=== PATIENT | male | born 1965 | race Caucasian/White ===

== ENCOUNTER 2018-01-15 11:35 | Emergency (ER) | payer MEDICARE, MEDICAID ==
[2018-01-15] MEDS: CEFTRIAXONE 1 GM INJ IM (12:28)
[2018-01-15] MEDS: LIDOCAINE 1% (MDV) 20 ML INJ SC (12:29)
== END 2018-01-15 12:55 | disposition home or self-care (01) ==
LOC: FTE 11:35
DX: H92.03 Otalgia, bilateral (principal); I10 Essential (primary) hypertension
CPT/HCPCS: 96372; 99284-25

== ENCOUNTER 2018-02-03 12:31 | Emergency (ER) | payer MEDICARE, MEDICAID | END 2018-02-03 13:08 | disposition home or self-care (01) | LOC: FTE 12:31 | DX: L60.8 Other nail disorders (principal); I10 Essential (primary) hypertension | CPT/HCPCS: 99282 ==

== ENCOUNTER 2018-04-15 12:45 | Emergency (ER) | payer MEDICARE, OTHER ==
[2018-04-15 15:06] LABS: AMPHETAMINE/METHAMPHETAMINE Negative (NEGATIVE); BARBITURATES Negative (NEGATIVE); BENZODIAZEPINES Negative (NEGATIVE); CANNABINOIDS Negative (NEGATIVE); COCAINE Negative (NEGATIVE); OPIATES Negative (NEGATIVE)
== END 2018-04-15 15:45 | disposition home or self-care (01) ==
LOC: FTE 12:45
DX: H66.3X3 Other chronic suppurative otitis media, bilateral (principal); I10 Essential (primary) hypertension
CPT/HCPCS: 70480; 80307; 99284-25